=== PATIENT | female | born 1995 | race Caucasian/White ===

== ENCOUNTER 2016-04-07 11:52 | Inpatient (IN) | payer BC, OTHER ==
[~2016-04-07] VITALS: Ht 167.6 cm; Wt 76.7 kg
[2016-04-07 14:44] LABS: BASO % 0.2 % (0.0-1.0); EOS # 0.2 K/mm3 (0.0-0.50); EOS % 2.9 % (0.0-3.0); LARGE UNSTAINED CELL # 0.1 K/mm3 (0.0-0.4); LARGE UNSTAINED CELL % 1.6 % (0.0-4.0); LYMPH # 2.1 K/mm3 (1.5-6.5); MEAN CORPUSCULAR HEMOGLOBIN 30.1 pg (27.0-33.0); MEAN CORPUSCULAR HGB CONC 33.1 g/dl (32.0-36.5); MEAN CORPUSCULAR VOLUME 91.1 fl (80.0-96.0); MONO # 0.5 K/mm3 (0.0-0.8); MONO % 5.7 % (0.0-5.0); NEUTROPHILS # 5.5 K/mm3 (1.8-7.7); NEUTROPHILS % 65.6 % (36.0-66.0); PLATELET COUNT, AUTOMATED 242 k/mm3 (150-450); RED CELL DISTRIBUTION WIDTH 13.2 % (11.5-14.5); WHITE BLOOD COUNT 8.4 K/mm3 (4.0-10.0)
[2016-04-07 15:05] LABS: ALBUMIN 3.7 GM/DL (3.2-5.2); ALBUMIN/GLOBULIN RATIO 1.42 (1.00-1.93); ALKALINE PHOSPHATASE 69 U/L (45-117); ALT/SGPT 17 U/L (12-78); ANION GAP 6 MEQ/L (8-16); AST/SGOT 25 U/L (15-37); BILIRUBIN,DIRECT 0.2 MG/DL (0.0-0.2); BILIRUBIN,TOTAL 0.9 MG/DL (0.2-1.0); BLOOD UREA NITROGEN 7 MG/DL (7-18); CALCIUM LEVEL 8.1 MG/DL (8.5-10.1); CARBON DIOXIDE LEVEL 27 MEQ/L (21-32); CHLORIDE LEVEL 112 MEQ/L (98-107); GLOMERULAR FILTRATION RATE > 60.0 (>60); GLUCOSE, FASTING 87 MG/DL (70-105); POTASSIUM SERUM 4.2 MEQ/L (3.5-5.1); SODIUM LEVEL 145 MEQ/L (136-145); TOTAL PROTEIN 6.3 GM/DL (6.4-8.2)
[2016-04-07] MEDS ORDERED: AMMONIA AROMATIC INHALANT (FLOOR STOCK) As Ordered ONE (15:40)
[2016-04-07] MEDS ORDERED: HYDR25T PO (16:10)
[2016-04-07] MEDS ORDERED: ZYRT10TA2 PO (16:10)
[2016-04-07] MEDS ORDERED: SING10TA32 PO (16:10)
[2016-04-07] MEDS ORDERED: TIZA2TA PO (16:10)
[2016-04-07] MEDS ORDERED: EFFE150C PO (16:10)
[2016-04-07] MEDS ORDERED: TOPA50TA7 PO (16:10)
[2016-04-07] MEDS ORDERED: BUSP5TA PO (16:10)
[2016-04-07] MEDS ORDERED: ONDANSETRON 4MG/2ML VIAL (J2405) IV PRN (17:00)
--- NOTE | 2016-04-07 17:21 | HPEPDOC ---
Medical History and Physical Date of Admission Apr 07, 2016 at 16:51 History and Physical PRIMARY CARE PROVIDER: ATTENDING: Rebecca Reich MD CHIEF COMPLAINT: Altered mental status HISTORY OF PRESENT ILLNESS: This is a 20-year-old female past history of anxiety, depression who presented to [place] with altered mental status after having using methamphetamine as well as benzodiazepines. The patient reports smoking, snorting, and injecting methamphetamine yesterday as well as taking 1 mg of Xanax which has not been prescribed to her. The patient was unresponsive at [place] and was giving flumazenil as well as Narcan. After which she started to exhibit seizure-like activity and was giving Ativan. The patient was medically cleared and sent over to [facility] for psychiatric evaluation given her suicidal ideations. In the ED patient was seen to exhibit pseudoseizures, following commands and having no postictal state, fecal or urinary incontinence. No tongue trauma. No loss of consciousness. The ED physician and spoken to the neurologist recommended no AEDs at this time. Continue to monitor, MRI/EEG. PAST MEDICAL HISTORY: As per HPI PAST SURGICAL HISTORY: Tonsillectomy, right eye surgery SOCIAL HISTORY: Smokes half pack per day. Polysubstance abuse with amphetamines , opiates, benzos, marijuana FAMILY HISTORY: No family history of seizures or neurologic disease ALLERGIES: Please see below. REVIEW OF SYSTEMS: HEENT: Denies sore throat/headache CARDIOVASCULAR: Denies chest pain/palpitations RESPIRATORY: No shortness of breath/cough GASTROINTESTINAL: denies nausea/vomiting GENITOURINARY: Denies dysuria/urinary urgency. MUSCULOSKELETAL: Denies myalgias/arthralgias NEUROLOGICAL: Denies any focal weakness Rest of ROS negative. HOME MEDICATIONS: Please see below. PHYSICAL EXAMINATION: Vitals: (see below) General: No acute distress, laying comfortably in bed. HEENT: Moist mucous membranes. Neck: No JVD or lymphadenopathy Cardiac: RRR, No murmurs Pulm: Clear to auscultation b/l. No wheezing, rhonchi Abd: NT/ND + BS Ext: No edema or cyanosis Neuro: Strength 5/5 BUE and BLE. CN 2-12 intact. Negative Babinki. LABORATORY DATA: See below. IMAGING: MRI brain pending EEG pending CT head reported negative at [place]. MICROBIOLOGY: Please see below. ASSESSMENT/PLAN: Pseudoseizures- patient was able to complete a full neurologic exam while exhibiting shaking and her upper and lower extremities. Patient stopped shaking with painful stimuli. No postictal state. Patient was tearful. The ED physician and spoken to the neurologist who recommended no AEDs at this time. Follow-up EEG and MRI, which have been ordered. Seizure precautions. Of note she did receive flumazenil given her recent Xanax use and unresponsiveness [place], which can precipitate seizures. Suicidal ideations- patient had told the nurse that she wanted to end her life. We will keep on one-to-one until patient is medically cleared and then will need a psychiatric evaluation. Polysubstance abuse- urine drug screen positive for methamphetamine, benzos, TCA , opiates. Counseling cessation. Anxiety/depression- continue home meds DVT prophylaxis- enoxaparin Patient will be followed by Dr. Alice Mckeon starting 04/08/16 at 7 AM. Laboratory Data Labs 24H Laboratory Tests 2 04/07/16 14:27: Prolactin 12.5 04/07/16 14:34: Acetaminophen Level < 2.0L, Aspartate Amino Transf (AST/SGOT) 25, Alanine Aminotransferase (ALT/SGPT) 17, Alkaline Phosphatase 69, Total Bilirubin 0.9, Direct Bilirubin 0.2, Albumin 3.7, Albumin/Globulin Ratio 1.42, Anion Gap 6L, White Blood Count 8.4, Red Blood Count 4.38, Hemoglobin 13.2, Hematocrit 39.9, Mean Corpuscular Volume 91.1, Mean Corpuscular Hemoglobin 30.1, Mean Corpuscular Hemoglobin Concent 33.1, Red Cell Distribution Width 13.2, Platelet Count 242, Neutrophils (%) (Auto) 65.6, Lymphocytes (%) (Auto) 24.0, Monocytes ( %) (Auto) 5.7H, Eosinophils (%) (Auto) 2.9, Basophils (%) (Auto) 0.2, Neutrophils # (Auto) 5.5, Lymphocytes # (Auto) 2.1, Monocytes # (Auto) 0.5, Eosinophils # (Auto) 0.2, Basophils # (Auto) 0.0, Calcium Level 8.1L, Ethyl Alcohol Level < 0.003, Glomerular Filtration Rate > 60.0, Large Unclassified Cells # 0.1, Large Unclassified Cells % 1.6, Salicylates Level < 1.7L, Total Protein 6.3L CBC/BMP Laboratory Tests 04/07/16 14:34 Red Blood Count 4.38, Mean Corpuscular Volume 91.1, Mean Corpuscular Hemoglobin 30.1, Mean Corpuscular Hemoglobin Concent 33.1, Red Cell Distribution Width 13.2 , Neutrophils (%) (Auto) 65.6, Lymphocytes (%) (Auto) 24.0, Monocytes (%) (Auto ) 5.7 H, Eosinophils (%) (Auto) 2.9, Basophils (%) (Auto) 0.2, Neutrophils # ( Auto) 5.5, Lymphocytes # (Auto) 2.1, Monocytes # (Auto) 0.5, Eosinophils # (Auto ) 0.2, Basophils # (Auto) 0.0 Home Medications Scheduled Buspirone HCl (Buspirone HCl) 5 Mg Tab 5 MG PO TID Cetirizine HCl (Zyrtec Allergy) 10 Mg Tab 10 MG PO DAILY Montelukast Sodium (Singulair) 10 Mg Tab 10 MG PO DAILY Topiramate (Topamax) 50 Mg Tab 50 MG PO DAILY Venlafaxine Hydrochloride (Effexor Xr) 150 Mg Cap 150 MG PO DAILY Scheduled PRN Hydroxyzine HCl (Hydroxyzine HCl) 25 Mg Tab 25 MG PO TID PRN PRN ANXIETY Tizanidine HCl (Tizanidine HCl) 2 Mg Tab 4-6 MG PO PRN MUSCLE SPASMS Allergies Coded Allergies: Amoxicillin (Unverified Allergy, Unknown, RASH/HIVES, 04/07/16) Cefaclor (Unverified Allergy, Unknown, RASH/HIVES, 04/07/16) Cefadroxil (Unverified Allergy, Unknown, RASH/HIVES, 04/07/16) Clavulanic Acid (Unverified Allergy, Unknown, RASH/HIVES, 04/07/16) REBECCA REICH MD Apr 07, 2016 17:21
[2016-04-07] MEDS ORDERED: ACETAMINOPHEN TAB 650MG DOSE (2X325MG) As Ordered ONE (20:05)
--- NOTE | 2016-04-07 20:33 | EDDOCDS ---
Physician Documentation [facility] Name: Wendy Cardona Age: 20 yrs Sex: Female : 1995 Arrival Date: 04/07/2016 Time: 11:52 Bed 3 Private MD: Unknown Pcp Disposition: 04/07/16 15:57 Hospitalization ordered by Karel Reich for Inpatient Admission. Preliminary diagnosis is Unspecified convulsions - Rule Out Seizure, Polysubstance Abuse. - Bed requested for PCU. - Status is Inpatient Admission. mlc - Condition is Stable. - Problem is new. - Symptoms are unchanged. Historical: - Allergies: Augmentin; Ceclor; Duricef; durocet; - Home Meds: 1. buspirone 5 mg Oral tab 3 times per day and 1 as needed for anxiety 2. Effexor XR 150 mg oral cp24 once daily 3. Topamax 50 mg Oral tab daily 4. hydroxyzine HCl 25 mg oral tab 1 tab three times daily as needed - daily max dose of 75 mg 5. Vitamin D Oral daily - PMHx: Anxiety; Depression; Migraines; Seasonal Allergies; - PSHx: Tonsillectomy; lazy eye correction; - Social history: Smoking status: Patient uses tobacco products, heavy tobacco smoker. No barriers to communication noted, The patient speaks fluent Luxembour[place]. - Family history: Not pertinent. - : The pt / caregiver states he / she is not on anticoagulants. Home medication list is obtained from records from [facility]. - Exposure Risk Screening:: None identified. COMPLIANCE PROGRAM MANAGER: 04/07 12:31 LMP 03/30/2016 kcs Vital Signs: 12:00 BP 120 / 71 RA Supine (auto/reg); Pulse 102; Resp 16; Temp 96.6(O); Pulse Ox 100% on rs6 R/A; Weight 69.4 kg / 153 lbs (R); Height 5 ft. 6 in. (167.64 cm) (R); Pain 9/10; 14:02 BP 126 / 84; Pulse 93; Resp 20; Pulse Ox 99% on R/A; Pain 6/10; kcs 15:14 BP 111 / 72 (auto/); js13 15:14 Pulse 91 MON; Resp 14; Pulse Ox 98% on R/A; js13 15:39 BP 108 / 75 (auto/); js13 15:39 Pulse 103 MON; Resp 14; Pulse Ox 98% on R/A; js13 16:17 BP 113 / 75 (auto/); js13 16:17 Pulse 95 MON; Resp 14; Pulse Ox 99% on R/A; js13 17:13 BP 120 / 71 (auto/); js13 17:13 Pulse 102 MON; Resp 14; Temp 97.1(O); Pulse Ox 99% on R/A; js13 17:30 BP 123 / 86 (auto/); js13 18:00 BP 115 / 63 (auto/); js13 18:01 Pulse 101; Resp 14; Pulse Ox 99% on R/A; js13 18:30 BP 113 / 60 (auto/); mlc 18:33 Pulse 111 MON; Pulse Ox 98% ; mlc 19:26 Pulse 108 MON; Pulse Ox 100% ; mlc 20:27 BP 114 / 72; Pulse 97; Resp 18; Temp 97.4; Pulse Ox 98% ; Pain 8/10; mlc 12:00 Body Mass Index 24.69 (69.40 kg, 167.64 cm) rs6 MDM: 12:35 REGULAR DIET PLASTIC WERNER+DIET ordered. EDMS 12:37 [facility] Payment Agreement was scanned into [employer] and attached to record. lg 12:57 Consult PFS/PSA/Digital Designer ordered. br1 12:57 Consult PFS/PSA/Digital Designer: Patient's case requires discussion with on-call br1 Psychiatrist ordered. 12:57 PSA/PFS to call Nursing Head Turning Machine Operator, to enter patient data on [place] Safe Act if patient br1 involuntarily admitted or transferred for SI or HI ordered. 12:57 Confirm accurate psychiatric medication list and times of last dosage ordered. br1 12:57 Detain Pt Until Medically/PFS Cleared ordered. br1 13:02 Financial registration complete. lg 14:11 IV Saline Lock ordered. br1 14:12 Pill Maker/Pulse Ox/q 30 min VS ordered. br1 14:12 CBC with Diff Ordered. EDMS 14:12 BMP Ordered. EDMS 14:12 Liver Profile Ordered. EDMS 14:12 ECG WITH READING ER PHYS+CARDIAG ordered. EDMS 14:16 ACETAMINOPHEN LEVEL Ordered. EDMS 14:16 ETHYL ALCOHOL (ETHANOL) Ordered. EDMS 14:16 SALICYLATE LEVEL Ordered. EDMS 14:34 Consult PFS/PSA/Digital Designer complete. mk4 14:34 Consult PFS/PSA/Digital Designer: Patient's case requires discussion with on-call 4 Psychiatrist complete. 14:39 Seizure Precautions ordered. br1 15:05 CBC with Diff Reviewed. br1 15:31 BMP Reviewed. br1 15:31 Liver Profile Reviewed. br1 15:31 ACETAMINOPHEN LEVEL Reviewed. br1 15:31 SALICYLATE LEVEL Reviewed. br1 15:31 ETHYL ALCOHOL (ETHANOL) Reviewed. br1 15:33 BED REQUEST+ADM ordered. EDMS 15:49 Prolactin Ordered. EDMS 16:33 PSA/PFS to call Nursing Head Turning Machine Operator, to enter patient data [place] Safe [place] if patient rb involuntarily admitted or transferred for SI or HI complete. 16:56 Admission / Observation Status ordered. EDMS 16:56 REGULAR DIET ordered. EDMS 16:57 MRI Brain without Contrast Ordered. EDMS 19:19 [facility] Legal paperwork was scanned into [employer] and attached to record. ml3 19:31 COMPLETE BLOOD COUNT Ordered. EDMS 19:31 COMPLETE COMPHRENSIVE METABOLI Ordered. EDMS 19:59 Acetaminophen Tablet 650 mg PO once ordered. mlc Administered Medications: 20:11 Drug: Acetaminophen 650 mg [acetaminophen 325 mg tablet (2 tabs)] Route: PO; [facility] Signatures: Dispatcher [employer] EDMS Janell Jasso RN RN kcs Marlyn Herrera, PSA PSA rb Karthikeyan Cope, Reg Reg lg Scarlett, CharleneElmerDarlyn, Community Coordinator Unit ml3 Jorge Hdez MD MD br1 Lila ArshadRN RN js13 Bettina Benjamin RN RN mk4 Rosemary Miller,ANTHONY CRUZ mlc Citlaly Oliveira RN RN sls2 The chart was reviewed and I authenticate all verbal orders and agree with the evaluation and treatment provided.Corrections: (The following items were deleted from the chart) 14:15 14:04 SALICYLATE LEVEL+LAB ordered. EDMS EDMS 14:15 14:04 ACETAMINOPHEN LEVEL+LAB ordered. EDMS EDMS 14:15 14:04 ETHYL ALCOHOL (ETHANOL)+LAB ordered. EDMS EDMS 14:28 12:31 Home Meds: Buspirone Oral; camilo page 14:28 12:31 Home Meds: Effexor XR Oral; kcs kcs Attachments: 12:37 [facility] Payment Agreement lg MTDD
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
[2016-04-07 20:56] VITALS: BP 116/79
[2016-04-07] MEDS: NS 1,000 ML IV SCH (22:11)
[2016-04-07 23:24] VITALS: BP 119/58
[2016-04-08] MEDS: NS 1,000 ML IV SCH ×2 (00:51→05:50)
[2016-04-08 05:50] VITALS: BP 125/75
[2016-04-08 06:05] LABS: MEAN CORPUSCULAR HEMOGLOBIN 30.4 pg (27.0-33.0); MEAN CORPUSCULAR HGB CONC 33.8 g/dl (32.0-36.5); MEAN CORPUSCULAR VOLUME 89.9 fl (80.0-96.0); RED CELL DISTRIBUTION WIDTH 13.1 % (11.5-14.5); WHITE BLOOD COUNT 7.2 K/mm3 (4.0-10.0)
[2016-04-08 06:20] LABS: ALBUMIN 3.4 GM/DL (3.2-5.2); ALBUMIN/GLOBULIN RATIO 1.17 (1.00-1.93); ALKALINE PHOSPHATASE 61 U/L (45-117); ALT/SGPT 16 U/L (12-78); ANION GAP 9 MEQ/L (8-16); AST/SGOT 20 U/L (15-37); BILIRUBIN,TOTAL 0.4 MG/DL (0.2-1.0); BLOOD UREA NITROGEN 5 MG/DL (7-18); CARBON DIOXIDE LEVEL 24 MEQ/L (21-32); CHLORIDE LEVEL 110 MEQ/L (98-107); CREATININE FOR GFR 0.61 MG/DL (0.55-1.02); GLOMERULAR FILTRATION RATE > 60.0 (>60); GLUCOSE, FASTING 93 MG/DL (70-105); POTASSIUM SERUM 3.5 MEQ/L (3.5-5.1); SODIUM LEVEL 143 MEQ/L (136-145); TOTAL PROTEIN 6.3 GM/DL (6.4-8.2)
[2016-04-08] MEDS: ACETAMINOPHEN TAB 650MG DOSE (2X325MG) PO PRN ×3 (07:48→23:54)
[2016-04-08] MEDS: ENOXAPARIN 40 MG/0.4 ML SYRINGE (J1650) SC SCH (07:49)
[2016-04-08 08:00] VITALS: BP 104/75
--- NOTE | 2016-04-08 11:20 | IPNPDOC ---
Subjective General Date Seen The patient was seen on 04/08/16. Subjective Chief Complaint/HPI The patient is a 20-year-old female admitted with a reason for visit of Psychiatric Pseudoseizure,Substance Abuse. Events since last encounter no complaints this am , denied any suicidal ideas though does says feels very depressed. Objective Physical Examination General Exam: Positive: Alert, No Acute Distress Eye Exam: Positive: Conjunctiva & lids normal, EOMI, PERRLA, Negative: Sclera icteric ENT Exam: Positive: Atraumatic, Mucous membr. moist/pink, Pharynx Normal Neck Exam: Positive: Supple, Negative: JVD, thyromegaly Chest Exam: Positive: Clear to auscultation, Normal air movement Heart Exam: Positive: Normal S1, Normal S2, Rate Normal, Regular Rhythm, Negative: Murmurs, Rubs Telemetry: Positive: No significant arrhythmia Abdomen Exam: Positive: Normal bowel sounds, Soft, Negative: Hepatospenomegaly, Tenderness Extremity Exam: Positive: Normal pulses, Negative: Clubbing, Cyanosis, Edema Skin Exam: Positive: Nl turgor and temperature, Negative: Breakdown, Rash Assessment /Plan Problems Problems: (1) Psychiatric pseudoseizure Status: Acute Problem Text: seizure vs pseudoseizure will get MRi and EEG of brain will get psychiatry consult. (2) Substance abuse Status: Acute Problem Text: methamphetamine and xanax. using meth for about 2 months. (3) Anxiety and depression Status: Chronic Problem Text: will consult psychiatry . does not have any suicidal ideas at present. Plan/VTE VTE Prophylaxis Ordered?: Yes VS, I&O, 24H, Fishbone Vital Signs/I&O Vital Signs Date Time Temp Pulse Resp B/P Pulse Ox O2 Delivery O2 Flow Rate FiO2 04/08/16 08:00 96.6 76 18 104/75 97 Room Air I&O- Last 24 Hours up to 6 AM 04/08/16 05:59 Intake Total 650 ml Output Total 1050 ml Balance -400 ml Laboratory Data 24H LABS Laboratory Tests 2 04/07/16 14:27: Prolactin 12.5 04/07/16 14:34: Acetaminophen Level < 2.0L, Aspartate Amino Transf (AST/SGOT) 25, Alanine Aminotransferase (ALT/SGPT) 17, Alkaline Phosphatase 69, Total Bilirubin 0.9, Direct Bilirubin 0.2, Albumin 3.7, Albumin/Globulin Ratio 1.42, Anion Gap 6L, White Blood Count 8.4, Red Blood Count 4.38, Hemoglobin 13.2, Hematocrit 39.9, Mean Corpuscular Volume 91.1, Mean Corpuscular Hemoglobin 30.1, Mean Corpuscular Hemoglobin Concent 33.1, Red Cell Distribution Width 13.2, Platelet Count 242, Neutrophils (%) (Auto) 65.6, Lymphocytes (%) (Auto) 24.0, Monocytes ( %) (Auto) 5.7H, Eosinophils (%) (Auto) 2.9, Basophils (%) (Auto) 0.2, Neutrophils # (Auto) 5.5, Lymphocytes # (Auto) 2.1, Monocytes # (Auto) 0.5, Eosinophils # (Auto) 0.2, Basophils # (Auto) 0.0, Calcium Level 8.1L, Ethyl Alcohol Level < 0.003, Glomerular Filtration Rate > 60.0, Large Unclassified Cells # 0.1, Large Unclassified Cells % 1.6, Salicylates Level < 1.7L, Total Protein 6.3L 04/08/16 05:45: Aspartate Amino Transf (AST/SGOT) 20, Alanine Aminotransferase (ALT/SGPT) 16, Alkaline Phosphatase 61, Total Bilirubin 0.4#, Albumin 3.4, Albumin/Globulin Ratio 1.17, Anion Gap 9, Calcium Level 8.0L, Glomerular Filtration Rate > 60.0, Total Protein 6.3L, Blood Urea Nitrogen 5L, Creatinine 0.61, Sodium Level 143, Potassium Level 3.5, Chloride Level 110H, Carbon Dioxide Level 24 CBC/BMP Laboratory Tests 04/07/16 14:34 Red Blood Count 4.38, Mean Corpuscular Volume 91.1, Mean Corpuscular Hemoglobin 30.1, Mean Corpuscular Hemoglobin Concent 33.1, Red Cell Distribution Width 13.2 , Neutrophils (%) (Auto) 65.6, Lymphocytes (%) (Auto) 24.0, Monocytes (%) (Auto ) 5.7 H, Eosinophils (%) (Auto) 2.9, Basophils (%) (Auto) 0.2, Neutrophils # ( Auto) 5.5, Lymphocytes # (Auto) 2.1, Monocytes # (Auto) 0.5, Eosinophils # (Auto ) 0.2, Basophils # (Auto) 0.0 04/08/16 05:45 Red Blood Count 4.14, Mean Corpuscular Volume 89.9, Mean Corpuscular Hemoglobin 30.4, Mean Corpuscular Hemoglobin Concent 33.8, Red Cell Distribution Width 13.1 , Calcium Level 8.0 L, Aspartate Amino Transf (AST/SGOT) 20, Alanine Aminotransferase (ALT/SGPT) 16, Alkaline Phosphatase 61, Total Bilirubin 0.4 #, Total Protein 6.3 L, Albumin 3.4 IHSAN FOX MD Apr 08, 2016 11:20
[2016-04-08] MEDS: NYSTATIN 500,000 U/5 ML SUSP UDC SS SCH ×3 (11:48→23:53)
[2016-04-08 12:00] VITALS: BP 118/70
[2016-04-08] MEDS: busPIRone 5 MG TAB PO SCH ×2 (14:31→21:22)
[2016-04-08] MEDS: VENLAFAXINE **XR** 75MG CAPSULE PO SCH (14:31)
[2016-04-08] MEDS: TOPIRAMATE (TopAMAX) 25 MG TAB PO SCH (14:31)
[2016-04-08 16:00] VITALS: BP 123/71
[2016-04-08 20:00] VITALS: BP 110/60
--- NOTE | 2016-04-08 21:05 | ECGEPIP ---
Stationary ECG Study [facility] - ED Test Date: 2016-04-07 Pat Name: JELANI READ Department: Room: - Gender: F Personnel Manager: ct : 1995 Requested By: DAVIDSON Bradshaw Order Number: [id number] Reading MD: Mela Gupta Measurements Intervals [place] Rate: 95 P: 60 AR: 118 QRS: 76 QRSD: 88 T: 104 QT: 350 QTc: 442 Interpretive Statements SINUS RHYTHM WITH SHORT AR INTERVAL POSSIBLE RIGHT VENTRICULAR CONDUCTION DELAY SEPTAL MYOCARDIAL INFARCTION, OF INDETERMINATE AGE NSTTW ABNORMALITY NO PRIOR FOR COMPARISON Electronically Signed On 04-08-2016 21:05:48 EST by Mela Gupta
[2016-04-09] VITALS: BP 120/74
[2016-04-09 04:00] VITALS: BP 113/56
[2016-04-09 05:40] LABS: MEAN CORPUSCULAR HEMOGLOBIN 30.7 pg (27.0-33.0); MEAN CORPUSCULAR HGB CONC 33.4 g/dl (32.0-36.5); MEAN CORPUSCULAR VOLUME 91.8 fl (80.0-96.0); RED CELL DISTRIBUTION WIDTH 12.9 % (11.5-14.5); WHITE BLOOD COUNT 7.8 K/mm3 (4.0-10.0)
[2016-04-09] MEDS: NYSTATIN 500,000 U/5 ML SUSP UDC SS SCH ×3 (05:49→17:33)
[2016-04-09 06:04] LABS: ALBUMIN 3.6 GM/DL (3.2-5.2); ALBUMIN/GLOBULIN RATIO 1.16 (1.00-1.93); ALKALINE PHOSPHATASE 63 U/L (45-117); ALT/SGPT 16 U/L (12-78); ANION GAP 9 MEQ/L (8-16); AST/SGOT 13 U/L (15-37); BILIRUBIN,TOTAL 0.5 MG/DL (0.2-1.0); BLOOD UREA NITROGEN 6 MG/DL (7-18); CALCIUM LEVEL 8.4 MG/DL (8.5-10.1); CARBON DIOXIDE LEVEL 24 MEQ/L (21-32); CHLORIDE LEVEL 110 MEQ/L (98-107); CREATININE FOR GFR 0.56 MG/DL (0.55-1.02); GLOMERULAR FILTRATION RATE > 60.0 (>60); GLUCOSE, FASTING 88 MG/DL (70-105); POTASSIUM SERUM 3.3 MEQ/L (3.5-5.1); SODIUM LEVEL 143 MEQ/L (136-145); TOTAL PROTEIN 6.7 GM/DL (6.4-8.2)
[2016-04-09 08:00] VITALS: BP 104/57
[2016-04-09] MEDS: busPIRone 5 MG TAB PO SCH ×2 (08:46→17:33)
[2016-04-09] MEDS: ENOXAPARIN 40 MG/0.4 ML SYRINGE (J1650) SC SCH (08:46)
[2016-04-09] MEDS: TOPIRAMATE (TopAMAX) 25 MG TAB PO SCH (08:47)
[2016-04-09] MEDS: VENLAFAXINE **XR** 75MG CAPSULE PO SCH (08:47)
[2016-04-09] MEDS ORDERED: TOPIRAMATE (TopAMAX) 25 MG TAB PO SCH (09:00)
[2016-04-09] MEDS ORDERED: VENLAFAXINE **XR** 75MG CAPSULE PO SCH (09:00)
--- NOTE | 2016-04-09 09:27 | EEG ---
DATE OF PROCEDURE: 04/08/2016 REFERRING PHYSICIAN: Dr. Jenkins DIAGNOSIS: Seizures versus pseudoseizures, rule out epilepsy. EEG NUMBER: [id number]. HISTORY: Patient is a 20-year-old woman who was transferred from [facility] due to altered mental status after having used methamphetamine and benzodiazepine. She was given flumazenil and Narcan. She had a seizure-like event afterwards. She was given Ativan. This EEG was done to rule out epileptic potential. She is currently taking Lovenox, Tylenol, nystatin, etc. TECHNICAL DESCRIPTION: This digital EEG was recorded by 21 scalp, ear and two EKG electrodes and was reviewed in bipolar and referential montages following reformatting in 10-20 international electrode placement system. INTERPRETATION: Patient was noted to be in awake and drowsy states during this EEG. Resting awake background consisted of well-formed posterior dominant rhythm with anterior/posterior gradient comprising of 11 Hz alpha activity measuring 15-40 microvolts in amplitude was symmetric and reactive to eye opening. Attenuation of posterior dominant was seen during transition into drowsiness. Stage I and II sleep were reviewed and were symmetric bilaterally. Hyperventilation could not be performed. Photic stimulation at 3-30 elicited symmetric photic driving especially at mid frequencies. EKG revealed normal sinus rhythm. No focal, lateralizing or epileptiform abnormalities were seen. No clinical or electrographic seizures were recorded. CONCLUSION: This EEG in awake, drowsy states, stage I and II sleep is within normal limits.
[2016-04-09] MEDS ORDERED: POTASSIUM CHLORIDE 10 MEQ SR TABLET PO ONE (09:30)
[2016-04-09] MEDS: ACETAMINOPHEN TAB 650MG DOSE (2X325MG) PO PRN (11:22)
[2016-04-09 12:00] VITALS: BP 91/55
--- NOTE | 2016-04-09 12:55 | IPNPDOC ---
Subjective General Date Seen The patient was seen on 04/09/16. Subjective Chief Complaint/HPI The patient is a 20-year-old female admitted with a reason for visit of Psychiatric Pseudoseizure,Substance Abuse. Events since last encounter had eeg yesterday , awaiting to get the MRI of brain , to be seen by psychiatry today. Objective Physical Examination General Exam: Positive: Alert, No Acute Distress Eye Exam: Positive: Conjunctiva & lids normal, EOMI, PERRLA, Negative: Sclera icteric ENT Exam: Positive: Atraumatic, Mucous membr. moist/pink, Pharynx Normal Neck Exam: Positive: Supple, Negative: JVD, thyromegaly Chest Exam: Positive: Clear to auscultation, Normal air movement Heart Exam: Positive: Normal S1, Normal S2, Rate Normal, Regular Rhythm, Negative: Murmurs, Rubs Telemetry: Positive: No significant arrhythmia Abdomen Exam: Positive: Normal bowel sounds, Soft, Negative: Hepatospenomegaly, Tenderness Extremity Exam: Positive: Normal pulses, Negative: Clubbing, Cyanosis, Edema Skin Exam: Positive: Nl turgor and temperature, Negative: Breakdown, Rash Assessment /Plan Problems Problems: (1) Psychiatric pseudoseizure Status: Acute Problem Text: seizure vs pseudoseizure will get MRi EEG is normal. Dr Muller to see. (2) Substance abuse Status: Acute Problem Text: methamphetamine and xanax. using meth for about 2 months. (3) Anxiety and depression Status: Chronic Problem Text: will consult psychiatry . does not have any suicidal ideas at present. Plan/VTE VTE Prophylaxis Ordered?: Yes VS, I&O, 24H, Emanuelbone Vital Signs/I&O Vital Signs Date Time Temp Pulse Resp B/P Pulse Ox O2 Delivery O2 Flow Rate FiO2 04/09/16 12:00 96.8 83 18 91/55 95 Room Air I&O- Last 24 Hours up to 6 AM 04/09/16 06:00 Intake Total 1220 ml Output Total 3575 ml Balance -2355 ml Laboratory Data 24H LABS Laboratory Tests 2 04/08/16 18:18: Bedside Glucose (Misc Panel) 152H 04/09/16 05:15: Blood Urea Nitrogen 6L, Creatinine 0.56, Sodium Level 143, Potassium Level 3.3L , Chloride Level 110H, Carbon Dioxide Level 24, Calcium Level 8.4L, Aspartate Amino Transf (AST/SGOT) 13L, Alanine Aminotransferase (ALT/SGPT) 16, Alkaline Phosphatase 63, Total Bilirubin 0.5, Total Protein 6.7, Albumin 3.6, Albumin/ Globulin Ratio 1.16, Anion Gap 9, Glomerular Filtration Rate > 60.0 CBC/BMP Laboratory Tests 04/09/16 05:15 Calcium Level 8.4 L, Aspartate Amino Transf (AST/SGOT) 13 L, Alanine Aminotransferase (ALT/SGPT) 16, Alkaline Phosphatase 63, Total Bilirubin 0.5, Total Protein 6.7, Albumin 3.6, Red Blood Count 4.54, Mean Corpuscular Volume 91.8, Mean Corpuscular Hemoglobin 30.7, Mean Corpuscular Hemoglobin Concent 33.4 , Red Cell Distribution Width 12.9 IHSAN FOX MD Apr 09, 2016 12:55
[2016-04-09 16:00] VITALS: BP 99/54
[2016-04-09] MEDS ORDERED: NYST50SS SS (17:52)
--- NOTE | 2016-04-09 21:33 | EDDOCDS ---
Physician Documentation [facility] Name: Wendy Cardona Age: 20 yrs Sex: Female : 1995 Arrival Date: 04/07/2016 Time: 11:52 Bed 3 Private MD: Unknown Pcp Disposition: 04/07/16 15:57 Hospitalization ordered by Karel Reich for Inpatient Admission. Preliminary diagnosis is Unspecified convulsions - Rule Out Seizure, Polysubstance Abuse. - Bed requested for PCU. - Status is Inpatient Admission. mlc - Condition is Stable. - Problem is new. - Symptoms are unchanged. Historical: - Allergies: Augmentin; Ceclor; Duricef; durocet; - Home Meds: 1. buspirone 5 mg Oral tab 3 times per day and 1 as needed for anxiety 2. Effexor XR 150 mg oral cp24 once daily 3. Topamax 50 mg Oral tab daily 4. hydroxyzine HCl 25 mg oral tab 1 tab three times daily as needed - daily max dose of 75 mg 5. Vitamin D Oral daily - PMHx: Anxiety; Depression; Migraines; Seasonal Allergies; - PSHx: Tonsillectomy; lazy eye correction; - Social history: Smoking status: Patient uses tobacco products, heavy tobacco smoker. No barriers to communication noted, The patient speaks fluent [place]. - Family history: Not pertinent. - : The pt / caregiver states he / she is not on anticoagulants. Home medication list is obtained from records from [facility]. - Exposure Risk Screening:: None identified. MILITARY NURSE: 04/07 12:31 LMP 03/30/2016 kcs Vital Signs: 12:00 BP 120 / 71 RA Supine (auto/reg); Pulse 102; Resp 16; Temp 96.6(O); Pulse Ox 100% on rs6 R/A; Weight 69.4 kg / 153 lbs (R); Height 5 ft. 6 in. (167.64 cm) (R); Pain 9/10; 14:02 BP 126 / 84; Pulse 93; Resp 20; Pulse Ox 99% on R/A; Pain 6/10; kcs 15:14 BP 111 / 72 (auto/); js13 15:14 Pulse 91 MON; Resp 14; Pulse Ox 98% on R/A; js13 15:39 BP 108 / 75 (auto/); js13 15:39 Pulse 103 MON; Resp 14; Pulse Ox 98% on R/A; js13 16:17 BP 113 / 75 (auto/); js13 16:17 Pulse 95 MON; Resp 14; Pulse Ox 99% on R/A; js13 17:13 BP 120 / 71 (auto/); js13 17:13 Pulse 102 MON; Resp 14; Temp 97.1(O); Pulse Ox 99% on R/A; js13 17:30 BP 123 / 86 (auto/); js13 18:00 BP 115 / 63 (auto/); js13 18:01 Pulse 101; Resp 14; Pulse Ox 99% on R/A; js13 18:30 BP 113 / 60 (auto/); mlc 18:33 Pulse 111 MON; Pulse Ox 98% ; mlc 19:26 Pulse 108 MON; Pulse Ox 100% ; mlc 20:27 BP 114 / 72; Pulse 97; Resp 18; Temp 97.4; Pulse Ox 98% ; Pain 8/10; mlc 12:00 Body Mass Index 24.69 (69.40 kg, 167.64 cm) rs6 MDM: 12:35 REGULAR DIET PLASTIC WERNER+DIET ordered. EDMS 12:37 [facility] Payment Agreement was scanned into [employer] and attached to record. lg 12:57 Consult PFS/PSA/Mercantile Reporter ordered. br1 12:57 Consult PFS/PSA/Mercantile Reporter: Patient's case requires discussion with on-call br1 Psychiatrist ordered. 12:57 PSA/PFS to call Nursing Supervisor Harvesting, to enter patient data on [place] Safe [place] if patient br1 involuntarily admitted or transferred for SI or HI ordered. 12:57 Confirm accurate psychiatric medication list and times of last dosage ordered. br1 12:57 Detain Pt Until Medically/PFS Cleared ordered. br1 13:02 Financial registration complete. lg 14:11 IV Saline Lock ordered. br1 14:12 Shipmaster/Pulse Ox/q 30 min VS ordered. br1 14:12 CBC with Diff Ordered. EDMS 14:12 BMP Ordered. EDMS 14:12 Liver Profile Ordered. EDMS 14:12 ECG WITH READING ER PHYS+CARDIAG ordered. EDMS 14:16 ACETAMINOPHEN LEVEL Ordered. EDMS 14:16 ETHYL ALCOHOL (ETHANOL) Ordered. EDMS 14:16 SALICYLATE LEVEL Ordered. EDMS 14:34 Consult PFS/PSA/Mercantile Reporter complete. mk4 14:34 Consult PFS/PSA/Mercantile Reporter: Patient's case requires discussion with on-call 4 Psychiatrist complete. 14:39 Seizure Precautions ordered. br1 15:05 CBC with Diff Reviewed. br1 15:31 BMP Reviewed. br1 15:31 Liver Profile Reviewed. br1 15:31 ACETAMINOPHEN LEVEL Reviewed. br1 15:31 SALICYLATE LEVEL Reviewed. br1 15:31 ETHYL ALCOHOL (ETHANOL) Reviewed. br1 15:33 BED REQUEST+ADM ordered. EDMS 15:49 Prolactin Ordered. EDMS 16:33 PSA/PFS to call Nursing Supervisor Harvesting, to [place] if patient rb involuntarily admitted or transferred for SI or HI complete. 16:56 Admission / Observation Status ordered. EDMS 16:56 REGULAR DIET ordered. EDMS 16:57 MRI Brain without Contrast Ordered. EDMS 19:19 MHE Legal paperwork was scanned into [employer] and attached to record. ml3 19:31 COMPLETE BLOOD COUNT Ordered. EDMS 19:31 COMPLETE COMPHRENSIVE METABOLI Ordered. EDMS 19:59 Acetaminophen Tablet 650 mg PO once ordered. [facility] 04/08 11:58 T-Sheet-- Draft Copy was scanned into [employer] and attached to record. 14:51 PCR was scanned into [employer] and attached to record. Administered Medications: 04/07 20:11 Drug: Acetaminophen 650 mg [acetaminophen 325 mg tablet (2 tabs)] Route: PO; [facility] Signatures: Dispatcher [employer] EDDC Janell Jasso RN RN kcs Herrera, Marlyn, PSA PSA rb Josi Murrieta, Reg Reg gb Karthikeyan Cope, Reg Reg lg Karina Pantoja, Hogshead Wrecker Unit ml3 Jorge Hdez MD MD br1 Lila Arshad RN RN js13 Bettina Benjamin RN RN mk4 Rosemary Miller RN RN [facility] Citlaly Oliveira RN RN sls2 The chart was reviewed and I authenticate all verbal orders and agree with the evaluation and treatment provided.Corrections: (The following items were deleted from the chart) 14:15 14:04 SALICYLATE LEVEL+LAB ordered. EDMS EDMS 14:15 14:04 ACETAMINOPHEN LEVEL+LAB ordered. EDMS EDMS 14:15 14:04 ETHYL ALCOHOL (ETHANOL)+LAB ordered. EDMS EDMS 14: 12:31 Home Meds: Buspirone Oral; kcs kcs 14: 12:31 Home Meds: Effexor XR Oral; kcs kcs Attachments: 12:37 [facility] Payment Agreement lg 04/08 11:58 T-Sheet-- Draft Copy gb Chart Complete MTDD
--- NOTE | 2016-04-09 21:33 | EDDOCDS ---
Physician Documentation [facility] Name: Wendy Cardona Age: 20 yrs Sex: Female : 1995 Arrival Date: 04/07/2016 Time: 11:52 Bed 3 Private MD: Unknown Pcp Disposition: 04/07/16 15:57 Hospitalization ordered by Karel Reich for Inpatient Admission. Preliminary diagnosis is Unspecified convulsions - Rule Out Seizure, Polysubstance Abuse. - Bed requested for PCU. - Status is Inpatient Admission. mlc - Condition is Stable. - Problem is new. - Symptoms are unchanged. Historical: - Allergies: Augmentin; Ceclor; Duricef; durocet; - Home Meds: 1. buspirone 5 mg Oral tab 3 times per day and 1 as needed for anxiety 2. Effexor XR 150 mg oral cp24 once daily 3. Topamax 50 mg Oral tab daily 4. hydroxyzine HCl 25 mg oral tab 1 tab three times daily as needed - daily max dose of 75 mg 5. Vitamin D Oral daily - PMHx: Anxiety; Depression; Migraines; Seasonal Allergies; - PSHx: Tonsillectomy; lazy eye correction; - Social history: Smoking status: Patient uses tobacco products, heavy tobacco smoker. No barriers to communication noted, The patient speaks fluent [place]. - Family history: Not pertinent. - : The pt / caregiver states he / she is not on anticoagulants. Home medication list is obtained from records from [facility]. - Exposure Risk Screening:: None identified. FOOD CRITIC: 04/07 12:31 LMP 03/30/2016 kcs Vital Signs: 12:00 BP 120 / 71 RA Supine (auto/reg); Pulse 102; Resp 16; Temp 96.6(O); Pulse Ox 100% on rs6 R/A; Weight 69.4 kg / 153 lbs (R); Height 5 ft. 6 in. (167.64 cm) (R); Pain 9/10; 14:02 BP 126 / 84; Pulse 93; Resp 20; Pulse Ox 99% on R/A; Pain 6/10; kcs 15:14 BP 111 / 72 (auto/); js13 15:14 Pulse 91 MON; Resp 14; Pulse Ox 98% on R/A; js13 15:39 BP 108 / 75 (auto/); js13 15:39 Pulse 103 MON; Resp 14; Pulse Ox 98% on R/A; js13 16:17 BP 113 / 75 (auto/); js13 16:17 Pulse 95 MON; Resp 14; Pulse Ox 99% on R/A; js13 17:13 BP 120 / 71 (auto/); js13 17:13 Pulse 102 MON; Resp 14; Temp 97.1(O); Pulse Ox 99% on R/A; js13 17:30 BP 123 / 86 (auto/); js13 18:00 BP 115 / 63 (auto/); js13 18:01 Pulse 101; Resp 14; Pulse Ox 99% on R/A; js13 18:30 BP 113 / 60 (auto/); mlc 18:33 Pulse 111 MON; Pulse Ox 98% ; mlc 19:26 Pulse 108 MON; Pulse Ox 100% ; mlc 20:27 BP 114 / 72; Pulse 97; Resp 18; Temp 97.4; Pulse Ox 98% ; Pain 8/10; mlc 12:00 Body Mass Index 24.69 (69.40 kg, 167.64 cm) rs6 MDM: 12:35 REGULAR DIET PLASTIC WERNER+DIET ordered. EDMS 12:37 [facility] Payment Agreement was scanned into [employer] and attached to record. lg 12:57 Consult PFS/PSA/Stock Or Delivery Clerk ordered. br1 12:57 Consult PFS/PSA/Stock Or Delivery Clerk: Patient's case requires discussion with on-call br1 Psychiatrist ordered. 12:57 PSA/PFS to call Nursing Strap Buckler, to enter [place] if patient br1 involuntarily admitted or transferred for SI or HI ordered. 12:57 Confirm accurate psychiatric medication list and times of last dosage ordered. br1 12:57 Detain Pt Until Medically/PFS Cleared ordered. br1 13:02 Financial registration complete. lg 14:11 IV Saline Lock ordered. br1 14:12 Commercial Loan Administrator/Pulse Ox/q 30 min VS ordered. br1 14:12 CBC with Diff Ordered. EDMS 14:12 BMP Ordered. EDMS 14:12 Liver Profile Ordered. EDMS 14:12 ECG WITH READING ER PHYS+CARDIAG ordered. EDMS 14:16 ACETAMINOPHEN LEVEL Ordered. EDMS 14:16 ETHYL ALCOHOL (ETHANOL) Ordered. EDMS 14:16 SALICYLATE LEVEL Ordered. EDMS 14:34 Consult PFS/PSA/Stock Or Delivery Clerk complete. mk4 14:34 Consult PFS/PSA/Stock Or Delivery Clerk: Patient's case requires discussion with on-call 4 Psychiatrist complete. 14:39 Seizure Precautions ordered. br1 15:05 CBC with Diff Reviewed. br1 15:31 BMP Reviewed. br1 15:31 Liver Profile Reviewed. br1 15:31 ACETAMINOPHEN LEVEL Reviewed. br1 15:31 SALICYLATE LEVEL Reviewed. br1 15:31 ETHYL ALCOHOL (ETHANOL) Reviewed. br1 15:33 BED REQUEST+ADM ordered. EDMS 15:49 Prolactin Ordered. EDMS 16:33 PSA/PFS to call Nursing Strap Buckler, to [place] if patient rb involuntarily admitted or transferred for SI or HI complete. 16:56 Admission / Observation Status ordered. EDMS 16:56 REGULAR DIET ordered. EDMS 16:57 MRI Brain without Contrast Ordered. EDMS 19:19 [facility] Legal paperwork was scanned into [employer] and attached to record. ml3 19:31 COMPLETE BLOOD COUNT Ordered. EDMS 19:31 COMPLETE COMPHRENSIVE METABOLI Ordered. EDMS 19:59 Acetaminophen Tablet 650 mg PO once ordered. [facility] [place] 04/08 11:58 T-Sheet-- Draft Copy was scanned into [employer] and attached to record. 14:51 PCR was scanned into [employer] and attached to record. Administered Medications: 04/07 20:11 Drug: Acetaminophen 650 mg [acetaminophen 325 mg tablet (2 tabs)] Route: PO; [facility] [place] Signatures: Dispatcher [employer] EDAR Janell Jasso RN RN kcs Herrera, Marlyn, PSA PSA rb Josi Murrieta, Reg Reg gb Karthikeyan Cope, Reg Reg lg Karina Pantoja, Clinical Trial Data Manager Unit ml3 Jorge Hdez MD MD br1 Lila Arshad RN RN js13 Bettina Benjamin RN RN mk4 Rosemary Miller RN RN [facility] [place] Citlaly Oliveira RN RN sls2 The chart was reviewed and I authenticate all verbal orders and agree with the evaluation and treatment provided.Corrections: (The following items were deleted from the chart) 14:15 14:04 SALICYLATE LEVEL+LAB ordered. EDMS EDMS 14:15 14:04 ACETAMINOPHEN LEVEL+LAB ordered. EDMS EDMS 14:15 14:04 ETHYL ALCOHOL (ETHANOL)+LAB ordered. EDMS EDMS 14: 12:31 Home Meds: Buspirone Oral; kcs kcs 14: 12:31 Home Meds: Effexor XR Oral; kcs kcs Attachments: 12:37 [facility] Payment Agreement lg 04/08 11:58 T-Sheet-- Draft Copy gb Chart Complete MTDD
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
--- NOTE | 2016-04-10 08:37 | REP ---
MRI BRAIN WITHOUT CONTRAST: 04/09/2016. Clinical history: Possible seizures. There are no prior studies. Sagittal T1, axial T1, T2 FLAIR, diffusion weighted images and ADC mapping sequences were provided. Ventricles are midline, symmetric and without dilatation displacement. Third and fourth ventricles also unremarkable. Basal ganglia were symmetric and normal. The lemus-white junction differentiation was well maintained. The T2 and FLAIR sequences show no T2 hyperintense foci in the white matter tracts in either hemisphere. There are a few tiny dilated perivascular spaces of Virchow in the basal ganglia as benign normal findings. Cortical stripe was preserved. There is no vascular territory infarct, intracranial hemorrhage, mass, mass effect or edema. Diffusion weighted images and the ADC mapping sequence show no evidence of acute ischemia. No restricted water diffusion. Corpus callosum, optic chiasm and pituitary are unremarkable. There is no cerebellar tonsillar ectopia. Seventh/eighth cranial nerve complexes and mastoids were unremarkable. Brainstem and cerebellum show no signal abnormality or atrophy. Basal cisterns intact. Globes and intraorbital contents unremarkable. Sinuses show no air-fluid levels with only minimal mucosal thickening in a few of the ethmoid air cells. Impression: 1. Normal MRI brain. Signed by Davie Deleon MD 04/10/2016 06:53 P
--- NOTE | 2016-04-10 16:25 | DSES ---
DATE OF ADMISSION: 04/08/2016 DATE OF DISCHARGE: 04/09/2016 DISCHARGE DIAGNOSES: 1. Psychiatric pseudoseizure. 2. Substance abuse. 3. Anxiety and depression. 4. Oral thrush. 5. Allergies. 6. Asthma. DISCHARGE MEDICATIONS: - nystatin swish and swallow every six hours - buspirone 5 mg three times a day - cetirizine 10 mg by mouth daily - montelukast 10 mg by mouth daily - Topamax 50 mg by mouth daily - venlafaxine 150 mg by mouth daily HOSPITAL COURSE: This is a 20-year-old female who was transferred from [facility] for altered mental status and possible seizure versus pseudoseizure after taking amphetamine and benzodiazepines. Patient was given Narcan and flumazenil at [facility], where she was initially unresponsive, but later on woke up and started exhibiting seizure-like activity and was given Ativan and transferred here for further evaluation. Patient, when she woke up in [place] initially had suicidal ideations, so she was transferred here for psychiatric evaluation. On her presentation here, patient was admitted to the medical unit to evaluate for seizure versus pseudoseizure. Patient had an electroencephalogram (EEG) done which was normal. Patient had a brain MRI done, which was also normal. Patient was then seen by psychiatrist, Dr. Muller, and was accepted to inpatient mental health unit for further evaluation and management of her psychiatric problems. At present, patient is functionally at baseline with stable vitals and is going to be transferred to inpatient mental health unit for further evaluation and treatment. PHYSICAL EXAMINATION: VITAL SIGNS: Temperature 96.8, pulse 85, respiratory rate 18, blood pressure 99/54, pulse oximetry 97% in room air. GENERAL: Patient is awake, alert, and oriented times three, sitting up in bed in no acute distress. HEENT: Normocephalic, atraumatic. Moist mucous membranes. Anicteric eyes. CHEST: Clear to auscultation. CARDIOVASCULAR: S1, S2 regular. No rub, murmur, or gallop. ABDOMEN: Soft, nontender. Bowel sounds present. EXTREMITIES: No edema. LABORATORY DATA: WBC 7.8, hemoglobin 13.9, platelets 240. Sodium 143, potassium 3.3, chloride 110, bicarbonate 24, BUN 6, creatinine 0.05. Liver function tests are normal. Alcohol level was less than 0.003, and Tylenol and salicylate levels were negative. Brain MRI within normal limits. EEG was also normal. DISPOSITION: Patient is transferred to inpatient mental health unit. DISCHARGE INSTRUCTIONS: 1. Regular diet. 2. Activity as tolerated.
== END 2016-04-09 20:08 | DRG 756 ==
LOC: M ED 11:52 → M ED INP 16:51 → INTOOBSV 16:51 → M PCU 20:41 → OBSVTOIN 04-08 14:09
PROVIDERS: ADMIT Internal Medicine; ATTEND Internal Medicine Nephrology
DX: F44.5 Conversion disorder with seizures or convulsions (principal); B37.0 Candidal stomatitis; F41.8 Other specified anxiety disorders; J45.909 Unspecified asthma, uncomplicated; F19.10 Other psychoactive substance abuse, uncomplicated; F17.210 Nicotine dependence, cigarettes, uncomplicated; Z88.1 Allergy status to other antibiotic agents; Z79.899 Other long term (current) drug therapy

== ENCOUNTER 2016-04-09 19:50 | Inpatient (IN) | payer BC ==
[~2016-04-09] VITALS: Ht 170.2 cm; Wt 70.0 kg
[~2016-04-09 19:50] MED LIST: BUSP5TA PO; EFFE150C PO; HYDR25T PO; NYST50SS SS; SING10TA32 PO; TIZA2TA PO; TOPA50TA7 PO; ZYRT10TA2 PO
[2016-04-09 21:38] VITALS: BP 116/62
[2016-04-09] MEDS ORDERED: MOM 30ML SUSPENSION UDC PO PRN (22:15)
[2016-04-09] MEDS ORDERED: MAALOX 30 ML SUSP *UDC PO PRN (22:15)
[2016-04-09] MEDS: busPIRone 5 MG TAB PO SCH (23:36)
[2016-04-09] MEDS: NYSTATIN 500,000 U/5 ML SUSP UDC SS SCH (23:57)
[2016-04-10] MEDS: NYSTATIN 500,000 U/5 ML SUSP UDC SS SCH ×4 (06:16→23:03)
[2016-04-10 06:29] VITALS: BP 93/55
[2016-04-10] MEDS ORDERED: VENLAFAXINE 37.5 MG TAB PO SCH (09:00)
[2016-04-10] MEDS: busPIRone 5 MG TAB PO SCH ×3 (09:41→22:28)
[2016-04-10] MEDS: VENLAFAXINE **XR** 75MG CAPSULE PO SCH (09:41)
[2016-04-10] MEDS: TOPIRAMATE (TopAMAX) 25 MG TAB PO SCH (09:41)
[2016-04-10] MEDS: ENOXAPARIN 40 MG/0.4 ML SYRINGE (J1650) SC SCH (09:43)
[2016-04-10 11:22] VITALS: BP 102/56
--- NOTE | 2016-04-10 14:25 | CR ---
DATE OF CONSULTATION: 04/09/2016 CHIEF COMPLAINT: Feels depressed. SUBJECTIVE: She is 20 years-old. She is single. I have been asked to see her by the hospitalist, Dr. Mckeon, to make an assessment, as she has taken an overdose of drugs, and has had seizure like activity, unclear whether its a seizure or other "pseudoseizure." The patient is interviewed, the chart is reviewed. She has been treated for depression, and attends the mental health clinic at [facility]. She came in to the hospital as a transfer from [facility] where she had gone, after she had apparently taken an overdose, had had unspecified convulsions, there is question about a seizure, she had overdosed on methamphetamine's and while she was at [facility], was witnessed to have seizure-like activity where she would shake her feet, her hands, and then she would slump, and was somewhat unresponsive. She was aroused quickly after inhaling ammonia, and was able to walk from the stretcher to the treatment room. She says remembers being at a friends' house, and then remember falling, then waking up over here in the hospital. She says she had been taking methamphetamine's, had been snorting them, says it just started recently, is somewhat vague on this, and then used it intravenously that night. She also used Xanax, which apparently a friend had given her. Per the hospital record, she had stated she had done this, she wanted to , was trying to kill herself, now denies it, but she may have said that, and had implied that she may as well as she was not doing well. While she has been in the hospital, she has been seen by medicine, and I am told by Dr. Mckeon that neurology was here, there was not anything positive found on an EEG and MRI. An EEG has been done, that is essentially negative, an MRI was not done and understand the machine was broken, but she is due to get it done today. She had been noted to be crying quite profusely while in hospital here. She says she has been depressed, in fact does not remember the last time she felt well consistently, felt depressed for the better part of the last several months, possibly the last year, possibly a little longer. She says when depressed, sleep is disturbed, goes down, at times it does up as well, her appetite fluctuates, as does energy, She has a hard time with focus, at times feels hopeless, vague suicidal thoughts, but denies she has ever had any active ones, does says she cut herself a couple of months ago to obtain emotional relief. Was seen at that time apparently by a counselor at [facility], who recommended she be hospitalized at [facility] in [place], where she stayed for a couple of days, and then discharged back to the clinic. Says had initially been referred to clinic by primary care, who had been treating her with an antidepressant, possibly Cymbalta, she had felt it was not helpful, and she suggests the admission at [facility] was for changing her medications, says it also a quicker way to get into the outpatient clinic otherwise. Was working at [employer], had been there for about 4 years or so, says was missing work because of being depressed, and eventually left. Her moods have gradually worsened, and in addition to that, she started misusing prescription medications, a couple of months or so ago. It should be noted, particularly with recent times, she is vague on time frames. Says she started using Percocet, and that the amount varies, but that at times she takes a quite a few pills. Has used Xanax as well, though suggests that has been rare. Started using methamphetamine's recently as discussed previously. She denies any use of other drugs. Has felt increasingly hopeless, despondent. Denies any symptoms indicative of hypomania or viraj. She was anxious a fair amount of the time. Denies any history of psychosis. She alludes to trauma related symptoms, but no details. Does says gets nightmares about them, however. No history consistent with psychosis as far as I am aware. Past psychiatric history as indicated above. No history of suicide attempts, but was admitted to [facility] for a couple of days a couple of months ago and is seen as an outpatient in [place]. SUBSTANCE ABUSE HISTORY: As indicated above. Had been misusing prescription medications, including opiates, Xanax, extent is unclear regarding Xanax. Has also misused methamphetamine's. MEDICAL HISTORY: Says she was treated for migraines, takes Topamax. MEDICATIONS: Please see the list, she is taking BuSpar at home, total of up to 20 mg daily, Effexor 150 mg daily, hydroxyzine 25 mg three times as needed as needed for anxiety. Medical history is significant for migraines, seasonal allergies. SURGICAL HISTORY: Tonsillectomy. Lazy eye correction. SOCIAL HISTORY: She is local. Says stays with her parents, then suggests that has been spending time with a friend, and then later on suggests that she is planning to move to [place], where her sister is, says they get along. 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 Currently not working. FAMILY PSYCHIATRY HISTORY: Significant for maternal uncle killing himself, this is before the patient was born. Sister treated for depression, anxiety. Collateral information obtains from her parents by staff and indicated that she does not generally tend to follow with recommendations, and they have been quite concerned about her condition and her ability to maintain her safety. VITAL SIGNS: Blood pressure 91/55, pulse 82, temperature 96.8. MENTAL STATUS EXAMINATION: She is lying in bed, somewhat unkempt, she is guarded, but overall cooperative, has latency of response possibly. There is no agitation. Fair to good eye contact. Answers questions logically, coherently, tone of voice is rather low. Mood is depressed. Affect is restricted, congruent with mood. Denies any suicidal thoughts or intents. No evidence of any homicidal ideas or intents. Denies any auditory or visual hallucinations. Does not appear to be internally preoccupied. Intellect is average. Cognition is grossly intact. She is able to maintain attention adequately. Judgment is poor, as is insight. ASSESSMENT: 1. Major depressive disorder, single episode. Severe, without psychotic features. 2. Rule out major depressive disorder recurrent, severe. 3. Opiate use disorder. 4. Status post over dose. She is depressed, significantly so, for a quite few month, possibly longer, that has impacted her work, she was unable to continue at work, she was admitted to hospital recently at [facility], in the past couple of months has been misusing opiates, benzodiazepines, and most recently amphetamine's which she overdosed on. It is questionable whether it was an intentional overdose. She minimizes her difficulties, and has poor judgment and insight. She is being seen by the hospitalist, medicine, to rule out seizures, as she has had seizure-like activity witnessed, when coming to hospital. RECOMMENDATIONS: She needs inpatient psychiatric hospitalization when fully medically cleared, in my opinion. The intensity of the depressed mood, deterioration in functioning, very questionable judgment currently all put her at risk for harming herself, including inadvertently. She does not wish to go to inpatient psychiatry. She meets criteria for involuntary hospitalization, and the relevant forms have been filled, to make the application. Favor consultation. If there any questions please call. The assessment took 50 minutes.
[2016-04-10] MEDS: ACETAMINOPHEN TAB 650MG DOSE (2X325MG) PO PRN (15:40)
[2016-04-10 18:00] VITALS: BP 115/72
[2016-04-11 06:30] VITALS: BP 86/56
[2016-04-11] MEDS: NYSTATIN 500,000 U/5 ML SUSP UDC SS SCH ×4 (06:35→23:53)
[2016-04-11] MEDS: ENOXAPARIN 40 MG/0.4 ML SYRINGE (J1650) SC SCH ×2 (09:00→09:16)
[2016-04-11] MEDS: VENLAFAXINE **XR** 75MG CAPSULE PO SCH (09:15)
[2016-04-11] MEDS: TOPIRAMATE (TopAMAX) 25 MG TAB PO SCH (09:15)
[2016-04-11] MEDS: busPIRone 5 MG TAB PO SCH ×3 (09:15→22:43)
--- NOTE | 2016-04-11 13:19 | HPE ---
DATE OF ADMISSION: 04/09/2016 Please refer to psychiatric history and evaluation for further details on this admission. This examination and history is intended for medical issues which may need treatment, followup or consult on this 20-year-old female who was initially presented to the [facility] with altered mental status. She has been smoking, snorting and injected methamphetamine. She took a Xanax. She was unresponsive at [facility]. They gave her flumazenil as well as Narcan. She then had some seizure like activity and was given Ativan, subsequently stopped, was medically cleared and sent to [facility] for psychiatric evaluation for suicidal ideations. In the ED, she was seen to exhibit pseudoseizures. She was following commands, having no postictal state, fecal or urinary incontinence. She was admitted to the progressive care unit (PCU), stabilized and now transferred to inpatient mental health. PRIMARY CARE PROVIDER: She currently has none. ALLERGIES: AMOXICILLIN, CEFACLOR, CEFADROXIL, CLAVULANIC ACID. SOCIAL HISTORY: She smokes one-half to one pack of cigarettes per day. ETOH none. She has a history of polysubstance abuse with amphetamines, opiates, benzodiazepines and marijuana. PAST MEDICAL HISTORY: Anxiety and depression. PAST SURGICAL HISTORY: Right eye surgery. Tonsillectomy. FAMILY HISTORY: Noncontributory. Ten systems review was done. It was unremarkable. HOME MEDICATIONS: - buspirone 5 mg by mouth three times daily - cefatrizine 10 mg by mouth daily - Singulair 10 mg by mouth daily - Topamax 50 mg by mouth daily - Effexor 150 mg by mouth daily - hydroxyzine 25 mg by mouth three times daily as needed for anxiety - tizanidine 2 mg every 4-6 hours as needed muscle spasms PHYSICAL EXAMINATION: 20-year-old cooperative female in no acute distress. Vital signs: Blood pressure 116/62, pulse 97, respiratory rate 16, temperature 96, height 67 inches, weight 71.9 kg, body mass index (BMI) 24.8. The patient is alert and oriented times three. Pupils equal and reactive to light. Extraocular movements intact. Cornea and sclera clear. Conjunctiva normal. No facial asymmetry. Pharynx, tongue and gums pink and moist. Tongue is midline. Neck is supple without lymphadenopathy. No thyromegaly. No goiter. Chest clear to auscultation, without wheeze or retraction. Heart is regular without murmur or gallop. Abdomen benign. Bowel sounds positive. Genitourinary ()/Rectal: Not done. Extremities: No cyanosis, clubbing or edema. Peripheral pulses equal and palpable bilaterally. Cranial nerves II-XII grossly intact. IMPRESSION/PLAN: Psychiatric plan per psychiatry. History of asthma, stable. No acute medical issues.
--- NOTE | 2016-04-11 15:49 | HPEPDOC ---
[facility] History & Physical History and Physical DATE OF ADMISSION: Apr 09, 2016 at 19:50 Medications Scheduled Buspirone HCl (Buspirone HCl) 5 Mg Tab 5 MG PO TID (Reported) Cetirizine HCl (Zyrtec Allergy) 10 Mg Tab 10 MG PO DAILY (Reported) Montelukast Sodium (Singulair) 10 Mg Tab 10 MG PO DAILY (Reported) Nystatin (Nystatin Oral Susp) 5 Ml Susp 5 ML SS Q6H Topiramate (Topamax) 50 Mg Tab 50 MG PO DAILY (Reported) Venlafaxine Hydrochloride (Effexor Xr) 150 Mg Cap 150 MG PO DAILY (Reported) Allergies Coded Allergies: Amoxicillin (Unverified Allergy, Unknown, RASH/HIVES, 04/07/16) Cefaclor (Unverified Allergy, Unknown, RASH/HIVES, 04/07/16) Cefadroxil (Unverified Allergy, Unknown, RASH/HIVES, 04/07/16) Clavulanic Acid (Unverified Allergy, Unknown, RASH/HIVES, 04/07/16) JOSE ANTONIO ANDREWS MD Apr 11, 2016 15:49
[2016-04-11 18:00] VITALS: BP 90/60
[2016-04-11] MEDS: ACETAMINOPHEN TAB 650MG DOSE (2X325MG) PO PRN (19:07)
--- NOTE | 2016-04-11 21:03 | MHHPE ---
DATE OF ADMISSION: 04/09/2015 CHIEF COMPLAINT: Feels depressed. SUBJECTIVE: She is [id number]. She has been transferred from the medical floor, but I had seen her on the consult service yesterday. Please refer to my consultation note for details related to the reasons for consultation, background history, and the circumstances leading to this admission. The patient is seen for outpatient care at [facility], is seen for depression, generalized anxiety disorder, and is currently on venlafaxine at 150 mg daily. She had come in as she had had seizures, or seizure-like activity, after taking an overdose of methamphetamine and Xanax, had injected the methamphetamine, had indicated that she was suicidal, later suggested that she was not, there is some concerns regarding her ability to maintain her safety and she has been severely depressed and has most recently been using drugs including Percocets regularly, for the last month or two. There is some question regarding the reliability of her story. She has been admitted in the past. She had been seen by the hospitalist, and it was thought that there was no seizure activity, the possibility of a " pseudoseizure" is considered. PAST PSYCHIATRIC HISTORY/SOCIAL HISTORY: Please refer to my earlier dictated consultation summary. MENTAL STATUS EXAMINATION: Fair hygiene, she is guarded, somewhat superficially cooperative, does not wish to be. Fair eye contact. Some psychomotor retardation, no agitation. Answers questions with one work answers, has a depressed, restricted affect, denies any suicidal thoughts or intents. No homicidal ideas or intents. No evidence of any psychosis, cognition grossly intact. Intellect average. Insight and judgment are compromised. ASSESSMENT: 1. Other specified depressive disorder, rule out major depressive disorder. 2. Opioid use disorder. 3. Generalized anxiety disorder by history. 4. Status post overdose recently. Remains significantly depressed, is guarded. PLAN: She is admitted to the in-patient psychiatry unit, placed on relevant precautions, will look at obtaining collateral information, she will receive a medical consultation if indicated. We will involve her in individual, group and milieu therapy. I have suggested she consider an increase in the venlafaxine, currently at 150 mg daily. She says it has been increased in the past, is somewhat vague about this but says she was told it may have made her more sedated and numb. She says that happened within the last few months, acknowledges she was using opiates at the same time as well. I would suggest obtaining collateral information from outpatient clinician, prior to making any change. She is to continue the rest of her medication regimen. She will be discharged for followup when she is stable. She will be seeing the psychiatrist assigned to her tomorrow. I would suggest that she is also referred, upon discharge, for substance abuse treatment. She has not been able to contact her parents, I suggest that we look at obtaining collateral information from them. I would anticipate a 5-7 day stay.
[2016-04-12] MEDS: NYSTATIN 500,000 U/5 ML SUSP UDC SS SCH ×3 (05:59→17:05)
[2016-04-12 07:24] VITALS: BP 99/60
[2016-04-12 07:38] LABS: MEAN CORPUSCULAR HEMOGLOBIN 30.4 pg (27.0-33.0); MEAN CORPUSCULAR HGB CONC 33.2 g/dl (32.0-36.5); MEAN CORPUSCULAR VOLUME 91.6 fl (80.0-96.0); RED CELL DISTRIBUTION WIDTH 12.8 % (11.5-14.5); WHITE BLOOD COUNT 8.1 K/mm3 (4.0-10.0)
--- NOTE | 2016-04-12 08:29 | IPNPDOC ---
[facility] Progress Note Progress Note DATE OF SERVICE: 04/12/16 DATE OF SERVICE: 04/12/16 Subjective: Patient reports ongoing depressed mood. She is depressed and affect and isolates in her room. Patient reports fair sleep and appetite. She requests shortened interview as she is not feeling like talking .She is medication compliant. Patient denies side effects. She reports mild headache, CP, Abd pain, or N/V/C/D. Objective: VITAL SIGNS: See below. NEW TEST RESULTS: None CURRENT MEDICATIONS: See below. MENTAL STATUS EXAMINATION: 20-year-old female, average height, thin build. calm and cooperative in behavior. Affect restricted. Mood congruent. Thought form logical, coherent; Thought content: paucity Patient expressing desire to seek treatment. Perception: No perceptual issues reported or noted on exam; Judgment: fair. Impulse control: fair SI-patient denies; HI-patient denies. Patient is requesting discharge to await inpatient rehabilitation bed at home. PROBLEM LIST: 1. Depression 2. Anxiety 3. Risk to self injure 4. Poor impulse control 5. Ineffective coping Assessment: Depressive disorder, unspecified Amphetamine use disorder, severe Cannabis use disorder, severe Plan: ----- 1.~ ~ Patient was admitted on a 11.26 legal status, 2.~ ~ With patients permission, family has been contacted and database expanded. 3.~ ~Continue Effexor XR at 300 mg by mouth daily for depressive symptoms. ~Continue Topamax at 50 mg by mouth daily for management of migraine headaches. ~Continue BuSpar 5mg by mouth 3 times a day for anxiety. ~Continue Trazodone at 50 mg by mouth daily at bedtime when necessary for insomnia. ~Continue Nicotine 21 mg patch every 24 hours for nicotine use disorder. ~~Patient continues to report desire to enter an inpatient substance abuse treatment program. ~~Social work and patient to complete applications for inpatient rehabilitation programs. 4.~ ~ Patient will be provided with protected environment. 5.~ ~ Patient will be treated with individual, group, and milieu therapies. 6.~ ~ Patient will receive supportive psych-education. 7.~ Outpatient follow-up treatment will be strongly recommended. TIME SPENT: [30] minutes. Vital Signs Vital Signs Date Time Temp Pulse Resp B/P Pulse Ox O2 Delivery O2 Flow Rate FiO2 04/12/16 07:24 96.8 80 18 99/60 04/11/16 18:00 Room Air Laboratory Data CBC/BMP Laboratory Tests 04/12/16 07:03 Red Blood Count 5.29, Mean Corpuscular Volume 91.6, Mean Corpuscular Hemoglobin 30.4, Mean Corpuscular Hemoglobin Concent 33.2, Red Cell Distribution Width 12.8 Current Medications Current Medications Acetaminophen (Tylenol Tab) 650 mg Q6HP PRN PO HEADACHE or DISCOMFORT Last administered on 04/11/16 19:07; Start 04/09/16 at 22:15; Stop 05/09/16 at 22:14 Al Hydrox/Mg Hydrox/Simethicone (Mylanta) 30 ml Q4HP PRN PO HEARTBURN/ INDIGESTION; Start 04/09/16 at 22:15; Stop 05/09/16 at 22:14 Buspirone HCl (Buspar) 5 mg TID PO Last administered on 04/11/16 22:43; Start 04/09/16 at 21:00; Stop 05/09/16 at 20:59 Enoxaparin Sodium (Lovenox) 40 mg DAILY SC Last administered on 04/10/16 09:43 ; Start 04/10/16 at 09:00; Stop 04/11/16 at 10:25; Status DC Magnesium Hydroxide (Milk Of Magnesia) 30 ml DAILYPRN PRN PO CONSTIPATION; Start 04/09/16 at 22:15; Stop 05/09/16 at 22:14 Nystatin (Mycostatin) 5 ml Q6H SS Last administered on 04/12/16 05:59; Start 04/10/16 at 00:00; Stop 04/17/16 at 00:00 Topiramate (TopAMAX) 50 mg DAILY PO Last administered on 04/11/16 09:15; Start 04/10/16 at 09:00; Stop 05/10/16 at 08:59 Trazodone HCl (Desyrel) 50 mg QHSP PRN PO INSOMNIA; Start 04/09/16 at 22:15; Stop 05/09/16 at 22:14 Venlafaxine HCl (Effexor Xr) 150 mg DAILY PO Last administered on 2/13/ 17at 09:15; Start 04/10/16 at 09:00; Stop 05/10/16 at 08:59 Venlafaxine HCl (Effexor) 150 mg DAILY PO ; Start 04/10/16 at 09:00; Stop at 09:00; Status DC Allergies Coded Allergies: Amoxicillin (Unverified Allergy, Unknown, RASH/HIVES, 04/07/16) Cefaclor (Unverified Allergy, Unknown, RASH/HIVES, 04/07/16) Cefadroxil (Unverified Allergy, Unknown, RASH/HIVES, 04/07/16) Clavulanic Acid (Unverified Allergy, Unknown, RASH/HIVES, 04/07/16) JOSE ANTONIO ANDREWS MD Apr 12, 2016 08:29
[2016-04-12] MEDS: VENLAFAXINE **XR** 75MG CAPSULE PO SCH (09:35)
[2016-04-12] MEDS: TOPIRAMATE (TopAMAX) 25 MG TAB PO SCH (09:36)
[2016-04-12] MEDS: busPIRone 5 MG TAB PO SCH ×3 (09:36→20:39)
[2016-04-12 18:00] VITALS: BP 104/57
[2016-04-12] MEDS: ACETAMINOPHEN TAB 650MG DOSE (2X325MG) PO PRN (20:39)
[2016-04-13] MEDS: NYSTATIN 500,000 U/5 ML SUSP UDC SS SCH ×5 (06:07→23:52)
[2016-04-13 06:42] VITALS: BP 86/53
[2016-04-13] MEDS: busPIRone 5 MG TAB PO SCH ×3 (09:14→21:42)
[2016-04-13] MEDS: VENLAFAXINE **XR** 75MG CAPSULE PO SCH (09:15)
[2016-04-13] MEDS: ACETAMINOPHEN TAB 650MG DOSE (2X325MG) PO PRN (09:15)
[2016-04-13] MEDS: NICOTINE 21MG/24HR 1 EA TRANSDERMAL TD SCH (09:15)
[2016-04-13] MEDS: TOPIRAMATE (TopAMAX) 25 MG TAB PO SCH (09:15)
[2016-04-13 18:00] VITALS: BP 95/56
[2016-04-13] MEDS: traZODone 50 MG TAB PO PRN (23:52)
[2016-04-14] MEDS: NYSTATIN 500,000 U/5 ML SUSP UDC SS SCH ×4 (06:05→22:40)
[2016-04-14 07:00] VITALS: BP 100/64
[2016-04-14] MEDS: NICOTINE 21MG/24HR 1 EA TRANSDERMAL TD SCH (08:42)
[2016-04-14] MEDS: busPIRone 5 MG TAB PO SCH ×3 (08:42→20:51)
[2016-04-14] MEDS: VENLAFAXINE **XR** 75MG CAPSULE PO SCH (08:42)
[2016-04-14] MEDS: TOPIRAMATE (TopAMAX) 25 MG TAB PO SCH (08:42)
[2016-04-14] MEDS: ACETAMINOPHEN TAB 650MG DOSE (2X325MG) PO PRN ×2 (08:43→14:44)
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
--- NOTE | 2016-04-14 11:56 | IPNPDOC ---
[facility] Progress Note Progress Note DATE OF SERVICE: 04/13/16 Subjective: Patient continues to isolate in her room, but reports improving mood. Patient attending groups and reported benefit. Patient noted to eat meals alone in her room. She is medication compliant. Patient denies side effects. Patient reports ongoing intrusive thoughts of using drugs and reports experiencing a drug dream last night. Patient denies medication s/e's. Patient reports no headaches since transfer from the medical unit after IV Meth induced seizure on admission. She reports no CP, Abd pain, or N/V/C/D. Objective: VITAL SIGNS: See below. NEW TEST RESULTS: None CURRENT MEDICATIONS: See below. MENTAL STATUS EXAMINATION: 20-year-old female, average height, thin build. calm and cooperative in behavior. Affect restricted. Mood congruent. Thought form logical, coherent; Expressing increased insight into understanding the maladaptive nature of substance abuse. Patient expressing ongoing desire to seek treatment. Perception: No perceptual issues reported or noted on exam; Judgment: poor to fair. Impulse control: poor. SI-patient denies; HI-patient denies. PROBLEM LIST: 1. Depression 2. Anxiety 3. Risk to self injure 4. Poor impulse control 5. Ineffective coping Assessment: Depressive disorder, unspecified Amphetamine use disorder, severe Cannabis use disorder, severe Plan: ----- 1.~ ~ Patient was admitted on a 9.30 legal status, 2.~ ~ With patients permission, family has been contacted and database expanded. 3.~ ~Continue Effexor XR at 300 mg by mouth daily for depressive symptoms. ~Continue Topamax at 50 mg by mouth daily for management of migraine headaches. ~Continue BuSpar 5mg by mouth 3 times a day for anxiety. ~Continue Trazodone at 50 mg by mouth daily at bedtime when necessary for insomnia. ~Continue Nicotine 21 mg patch every 24 hours for nicotine use disorder. 4.~ ~ Patient will be provided with protected environment. 5.~ ~ Patient will be treated with individual, group, and milieu therapies. 6.~ ~ Patient will receive supportive psych-education. 7.~ Outpatient follow-up treatment will be strongly recommended. Estimated length of stay between 3-5 days TIME SPENT: [30] minutes. Vital Signs Vital Signs Date Time Temp Pulse Resp B/P Pulse Ox O2 Delivery O2 Flow Rate FiO2 04/14/16 07:00 96.6 95 16 100/64 04/11/16 18:00 Room Air Current Medications Current Medications Acetaminophen (Tylenol Tab) 650 mg Q6HP PRN PO HEADACHE or DISCOMFORT Last administered on 04/14/16 08:43; Start 04/09/16 at 22:15; Stop 05/09/16 at 22:14 Al Hydrox/Mg Hydrox/Simethicone (Mylanta) 30 ml Q4HP PRN PO HEARTBURN/ INDIGESTION; Start 04/09/16 at 22:15; Stop 05/09/16 at 22:14 Buspirone HCl (Buspar) 5 mg TID PO Last administered on 04/14/16 08:42; Start 04/09/16 at 21:00; Stop 05/09/16 at 20:59 Enoxaparin Sodium (Lovenox) 40 mg DAILY SC Last administered on 04/10/16 09:43 ; Start 04/10/16 at 09:00; Stop 04/11/16 at 10:25; Status DC Magnesium Hydroxide (Milk Of Magnesia) 30 ml DAILYPRN PRN PO CONSTIPATION; Start 04/09/16 at 22:15; Stop 05/09/16 at 22:14 Nicotine (Nicoderm Cq 21mg) 1 patch DAILY TD Last administered on 04/14/16 08: 42; Start 04/13/16 at 09:00; Stop 05/13/16 at 08:59 Nystatin (Mycostatin) 5 ml Q6H SS Last administered on 04/14/16 06:05; Start 04/10/16 at 00:00; Stop 04/17/16 at 00:00 Topiramate (TopAMAX) 50 mg DAILY PO Last administered on 04/14/16 08:42; Start 04/10/16 at 09:00; Stop 05/10/16 at 08:59 Trazodone HCl (Desyrel) 50 mg QHSP PRN PO INSOMNIA Last administered on 23:52; Start 04/09/16 at 22:15; Stop 05/09/16 at 22:14 Venlafaxine HCl (Effexor Xr) 150 mg DAILY PO Last administered on 09:15; Start 04/10/16 at 09:00; Stop 04/12/16 at 09:17; Status DC Venlafaxine HCl (Effexor Xr) 300 mg DAILY PO Last administered on 08:42; Start 04/12/16 at 09:00; Stop 05/12/16 at 08:59 Venlafaxine HCl (Effexor) 150 mg DAILY PO ; Start 04/10/16 at 09:00; Stop at 09:00; Status DC Allergies Coded Allergies: Amoxicillin (Unverified Allergy, Unknown, RASH/HIVES, 04/07/16) Cefaclor (Unverified Allergy, Unknown, RASH/HIVES, 04/07/16) Cefadroxil (Unverified Allergy, Unknown, RASH/HIVES, 04/07/16) Clavulanic Acid (Unverified Allergy, Unknown, RASH/HIVES, 04/07/16) JOSE ANTONIO ANDREWS MD Apr 14, 2016 11:56
[2016-04-14 18:00] VITALS: BP 102/59
[2016-04-14] MEDS: traZODone 50 MG TAB PO PRN (23:16)
[2016-04-15] MEDS: NYSTATIN 500,000 U/5 ML SUSP UDC SS SCH ×2 (06:01→12:00)
[2016-04-15 06:31] VITALS: BP 96/52
[2016-04-15 07:02] LABS: MEAN CORPUSCULAR HEMOGLOBIN 30.8 pg (27.0-33.0); MEAN CORPUSCULAR HGB CONC 33.7 g/dl (32.0-36.5); MEAN CORPUSCULAR VOLUME 91.4 fl (80.0-96.0); WHITE BLOOD COUNT 8.6 K/mm3 (4.0-10.0)
[2016-04-15] MEDS ORDERED: NYST50SS SS (08:17)
[2016-04-15] MEDS ORDERED: NICO21PAT TD (08:17)
[2016-04-15] MEDS: NICOTINE 21MG/24HR 1 EA TRANSDERMAL TD SCH (09:00)
[2016-04-15] MEDS: VENLAFAXINE **XR** 75MG CAPSULE PO SCH (09:47)
[2016-04-15] MEDS: TOPIRAMATE (TopAMAX) 25 MG TAB PO SCH (09:47)
[2016-04-15] MEDS: busPIRone 5 MG TAB PO SCH (09:47)
--- NOTE | 2016-04-15 10:33 | DS.PDOC ---
[facility] Discharge Summary Discharge Summary DATE OF ADMISSION: Apr 09, 2016 at 19:50 DATE OF DISCHARGE: 04/15/2016 DISCHARGE DIAGNOSES: REASON FOR ADMISSION: HISTORY OF THE PRESENT ILLNESS: HOSPITALIZATION COURSE: Patient transferred from the medical floor after being stabilized status post IV methamphetamine intoxication induced seizure. MENTAL STATUS EXAMINATION --on discharge: Patient is a 20-year-old female who appears stated age, dressed in hospital attire, calm and cooperative Speech: Is regular rate and rhythm, spontaneous Thought processes: Linear, Goal directed. Thought content: appropriate, looking forward to returning home and to work Perception: No current and patient denies hx of AH/VH nor paranoid ideations. No signs of psychosis reported or noted. Orientation: Alert and oriented to time, place and person and situation Recent and remote memory: Intact. Immediate short-term and long-term memory is: intact. Attention span and concentration: fair. Language: Normal. Fund of knowledge: good. Mood: Euthymic Affect: Full CONSULTANTS: none. LABS: Please see below MEDICATIONS ON DISCHARGE: PLAN/FOLLOWUP ARRANGEMENTS: Follow-up appointments with PCP mental health provider within 2 weeks of discharge has been scheduled by the business continuity planner. THE AMOUNT OF TIME SPENT IN THE COORDINATION OF CARE FOR THIS PATIENT WAS APPROXIMATELY --60 MINUTES. Vital Signs Vital Sign - Last 24 Hours 04/14/16 04/15/16 18:00 06:31 Temp 98.8 99.0 Pulse 97 85 Resp 18 16 B/P 102/59 96/52 Laboratory Data CBC/BMP Laboratory Tests 04/15/16 06:29 Red Blood Count 4.61, Mean Corpuscular Volume 91.4, Mean Corpuscular Hemoglobin 30.8, Mean Corpuscular Hemoglobin Concent 33.7, Red Cell Distribution Width 13.0 Medications Scheduled Buspirone HCl (Buspirone HCl) 5 Mg Tab #21 5 MG PO TID DEPRESSION Montelukast Sodium (Singulair) 10 Mg Tab 10 MG PO DAILY ASTHMA (Reported) Nicotine (Nicotine Transdermal Syst) 21 Mg/24 Hr Dis #14 1 PATCH TD DAILY SMOKING CESSATION Nystatin (Nystatin Oral Susp) 5 Ml Susp #60 5 ML SS Q6H thrush Topiramate (Topamax) 25 Mg Tab #7 50 MG PO DAILY MIGRAINE Venlafaxine HCl (Venlafaxine HCl ER) 75 Mg Cap #28 300 MG PO DAILY DEPRESSION Scheduled PRN Trazodone HCl (Trazodone HCl) 50 Mg Tab #7 50 MG PO QHSP PRN PRN INSOMNIA Allergies Coded Allergies: Amoxicillin (Unverified Allergy, Unknown, RASH/HIVES, 04/07/16) Cefaclor (Unverified Allergy, Unknown, RASH/HIVES, 04/07/16) Cefadroxil (Unverified Allergy, Unknown, RASH/HIVES, 04/07/16) Clavulanic Acid (Unverified Allergy, Unknown, RASH/HIVES, 04/07/16) JOSE ANTONIO ANDREWS MD Apr 15, 2016 10:33 JOSE ANTONIO ANDREWS MD Apr 15, 2016 10:33
[2016-04-15] MEDS ORDERED: VENL75CA PO (10:35)
[2016-04-15] MEDS ORDERED: TOPA25TA10 PO (10:35)
[2016-04-15] MEDS ORDERED: TRAZO50TA PO (10:35)
[2016-04-15] MEDS ORDERED: BUSP5TA PO (10:35)
== END 2016-04-15 13:15 | disposition home or self-care (01) | DRG 754 ==
LOC: M PSY 19:50
PROVIDERS: ADMIT Psychiatry & Neurology Psychiatry; ATTEND Psychiatry & Neurology Psychiatry
DX: F32.9 Major depressive disorder, single episode, unspecified (principal); F17.210 Nicotine dependence, cigarettes, uncomplicated; F11.90 Opioid use, unspecified, uncomplicated; F12.90 Cannabis use, unspecified, uncomplicated; Z88.0 Allergy status to penicillin; Z88.8 Allergy status to other drugs, medicaments and biological substances; Z79.899 Other long term (current) drug therapy